=== PATIENT | male | born 1960 | race Hispanic/Latino ===

== ENCOUNTER 2025-01-29 08:35 | Emergency (ER) | payer OTHER, MEDICAID ==
[~2025-01-29] VITALS: Ht 170.2 cm; Wt 90.7 kg
--- NOTE | 2025-01-29 10:10 | ERN ---
ED Note History of Present Illness Stated Complaint: FALL Chief Complaint: Mechanical Fall Time Seen by MD: 08:46 Dictation: 64-year-old male presenting to the emergency department with ground level fall, mechanical fall after tripping over branches. Striking his head causing abrasions and left hand pain as well. No other injuries patient denies any LOC is not on blood thinners no neck pain abdominal or chest pain Allergies: Coded Allergies: No Known Drug Allergies (Unverified Allergy, Unknown, 01/29/25) Past Medical History Past Medical History: Hypertension Surgical History: None Review of System Dictation Constitutional: Negative for fever,chills, and weight loss Eyes: Negative for injury, pain,redness, and discharge ENT: Negative for injury,pain or swelling Cardiovascular: Negative for chest pain, palpitations, and edema Respiratory: Negative for shortness of breath, cough, and wheezing, Abdomen/GI: Negative for abdominal pain, nausea, vomiting, diarrhea, and constipation Back: Negative for injury and pain : Negative for injury, bleeding and discharge MS/Extremity: Per HPI Skin: Per HPI Neuro: Negative for headache, weakness, numbness, tingling, and seizure Psych: Negative for suicide ideation, homicidal ideation, and hallucinations Initial Vital Sign VS Vital Signs Date Time Temp Pulse Resp B/P (MAP) Pulse Ox O2 Delivery O2 Flow Rate FiO2 01/29/25 08:36 97.9 57 16 139/48 98 Room Air 01/29/25 11:26 0 21 Physical Exam Dictation General: awake, alert, NAD Head/Face: Normocephalic, facial abrasions Eyes: PERRL, EOMI, vision at baseline ENT: oral cavity clear, TMs clear, no signs of infection Neck: Trachea midline, supple, no nuchal rigidity Cardiovascular: RRR, normal S1/S2, No MRGs, no JVD Respiratory: CTAB, no respiratory distress, No rales or wheezes Abdomen: Soft, non-tender, non-distended, normal bowel sounds, no guarding or rebound. Skin: Warm, dry, normal turgor, facial abrasions MS/Extremity: Pulses equal, no cyanosis, neurovascular intact, FROM, left hand swelling with small abrasion Neuro: COAx4, GCS 15, strength 5/5, CN 2-12 intact, normal cerebellar exam, normal gait, Psych: Normal behavior, mood, and affect normal ED Course ED Course Orders Procedure Category Date Status Time Ct Head/Brain W/O CT 01/29/25 Resulted Contrast 09:45 Ct Maxillofacial W/O CT 01/29/25 Resulted Contrast 09:45 Hand 3+Vws Lt RAD 01/29/25 Resulted 09:45 Tetanus,Diphtheria PHA 01/29/25 Complete Tox [Adult] (Diphther 10:00 Dermabond (Dermabond) PHA 01/29/25 Complete 11:30 *Nursing CPOE 01/29/25 Transmitted Communication: 11:29 Dermabond (Dermabond) PHA 01/29/25 Complete 11:34 Current Medications Medications (Trade) Dose Ordered Sig/Isaac Route PRN Reason Start Time Stop Time Status Last Admin Dose Admin Octyl Cyanoacrylate (Dermabond) 1 each ONCE ONCE TP 01/29/25 11:30 01/29/25 11:34 DC 01/29/25 11:44 Octyl Cyanoacrylate (Dermabond) 1 each STK-MED ONCE TP 01/29/25 11:34 01/29/25 11:34 DC 01/29/25 11:45 Tetanus/ Diphtheria Toxoids Adsorbed (DiphthERIA-teTANUS TOXOID [ADULT]/ DECAVAC) 0.5 ml ONCE ONCE IM 01/29/25 10:00 01/29/25 10:01 DC Vital Signs Date Time Temp Pulse Resp B/P (MAP) Pulse Ox O2 Delivery O2 Flow Rate FiO2 01/29/25 11:26 62 16 134/43 99 Room Air* 0 21 01/29/25 08:36 97.9 57 16 139/48 98 Room Air Medical Decision Making MDM MDM: Differential diagnosis: Rationale: Tests considered and ordered secondary to shared decision making include: Previous outside records reviewed: Old ER visits. Risk of complication and/or morbidity or mortality of patient management: None Medications-Per medication reconciliation Need for hospitalization: Patient does not meet criteria for hospitalization. Need for emergency major/minor surgery: No There are no social concerns with this patient. Prescription drug management Prescriptions will include symptomatic care Patient's prior external medical records from other ER visits were reviewed by me as indicated. Prior testing and results from previous visits were reviewed. Prior tests were taken into account with medical decision making and resource utilization, independent historian/historians were used to obtain complete medical history. I independently interpreted the test that were performed, results were reviewed by me and considered findings on radiology if ordered. Medical management and examination interpretation discussions were had by me with other qualified healthcare professionals as indicated for the patient's care. 64-year-old male ground level fall facial abrasions and left hand contusion x- rays and CT scans were all stable tetanus updated patient's wound cared for stable for discharge. DX & DISP Disposition: Discharge Departure Impression: Primary Impression: Fall Additional Impressions: Facial abrasion, Contusion of left hand Condition: Stable Referrals: ABBEY BENNETT MD (PCP) JOEL DUARTE MD Jan 29, 2025 10:10
--- NOTE | 2025-01-29 11:15 | HMCIMG ---
EXAM: CT BRAIN WITHOUT INTRAVENOUS CONTRAST Technique: Axial computed tomography of the brain with coronal and sagittal reformations; radiation dose reduction per ALARA. CTDIvol 78.10 mGy; DLP 1746.60 mGy???cm. Contrast: No intravenous contrast administered. Clinical Information: Fall. Comparison: None Findings: Brain: Normal parenchymal attenuation without acute territorial infarct or intracranial hemorrhage; scattered hypodensities in the bilateral periventricular and subcortical white matter consistent with chronic small vessel ischemic change; talley???white matter differentiation preserved. Ventricles and extra-axial spaces: Ventricular size and configuration within expected limits for age; prominence of sulci, basal cisterns, and sylvian fissures compatible with age-related cerebral volume loss; no extra-axial fluid collection; no midline shift. Skull and extracranial soft tissues: Skull base and calvarium without acute osseous abnormality; extracranial soft tissues unremarkable. Orbits: Intraorbital contents without acute abnormality. Paranasal sinuses and mastoid air cells: Visualized paranasal sinuses are clear; mastoid air cells unremarkable. Impression: * No acute intracranial abnormality. * Chronic microvascular ischemic changes in the cerebral white matter. * Age-related cerebral volume loss. /[place]
--- NOTE | 2025-01-29 11:27 | HMCIMG ---
EXAM: CR left Hand, 3 View. CLINICAL HISTORY: injury COMPARISON: None provided. FINDINGS: BONES: No acute osseous pathology evident. JOINTS: No evidence of dislocation. The joint spaces are normal. SOFT TISSUES: The soft tissues appear within normal limits. No radiopaque foreign body is seen. IMPRESSION: No acute pathology evident. No acute fracture or dislocation. /[place]
--- NOTE | 2025-01-29 11:28 | NUR ---
PT REFUSED TETNUS VACCINE, PT AND HOME PROVIDER STATE ALREADY HAD ONE 1 YEAR AGO
--- NOTE | 2025-01-29 11:32 | NUR ---
ICE PACK APPLIED TO LEFT HAND
[2025-01-29] MEDS: OCTYL 2-CYANOACRYLATE 1 EACH TP ONE ×2 (11:44→11:45)
--- NOTE | 2025-01-29 11:45 | NUR ---
CLEANSED WOUND TO FOREHEAD WITH SPRAY CEANSER, APPLIED DERMABOND AND THEN REINFORCED WITH 3 STERISTRIPS, COVERED WITH NONADHESIVE GAUZE AND SECURED WITH OPPSITE TAPE, PT TOLERATE WELL
--- NOTE | 2025-01-29 11:55 | HMCIMG ---
EXAM: CT MAXILLOFACIAL WITHOUT INTRAVENOUS CONTRAST Technique: Multislice computed tomography of the facial bones with thin-section axial acquisition and coronal/sagittal reformations. CTDIvol 78.10 mGy; DLP 1746.60 mGy???cm. Contrast: No intravenous contrast administered. Clinical Information: Fall. Comparison: None Findings: Mandible and temporomandibular joints: Mandible intact without fracture; temporomandibular joints congruent without subluxation or dislocation. Maxilla, zygoma, and facial bones: Maxilla, zygomatic arches, and other facial bones intact without fracture or cortical interruption; alveolus and hard palate unremarkable. Orbits: Orbital rims and stacy intact bilaterally; no intraorbital emphysema; no radiopaque foreign body identified. Nasal bones and nasal septum: Nasal bones intact; mild leftward nasal septal deviation with a small bony spur. Paranasal sinuses and mastoid air cells: Paranasal sinuses clear without fluid level or mucosal thickening; mastoid air cells clear. Temporal bones and otic structures: External auditory canals unremarkable; petrous temporal bones, middle ears, and inner ear structures normal. Skull base: Intact without fracture. Soft tissues: No focal soft tissue hematoma or subcutaneous emphysema identified. Impression: * No acute facial bone fracture or dislocation. * Mild leftward nasal septal deviation with a small bony spur. * No radiopaque foreign body; paranasal sinuses and mastoid air cells are clear. /[place]
[2025-01-29 12:47] VITALS: BP 126/54; PULSE 60; RESP 16; TEMP 97.8; O2SAT 99
== END 2025-01-29 12:46 | disposition home or self-care (01) ==
LOC: EDH 08:35
DX: S60.222A Contusion of left hand, initial encounter (principal); S00.81XA Abrasion of other part of head, initial encounter; I10 Essential (primary) hypertension; W01.0XXA Fall on same level from slipping, tripping and stumbling without subsequent striking against object, initial encounter; Y93.89 Activity, other specified; Y92.89 Other specified places as the place of occurrence of the external cause; Y99.8 Other external cause status
CPT/HCPCS: 70450; 70486; 73130; 99284